=== PATIENT | female | born 1960 | race Caucasian/White ===

== ENCOUNTER 2018-03-17 05:45 | Day surgery (SDC) | payer OTHER ==
[~2018-03-17] VITALS: Ht 154.9 cm; Wt 64.4 kg
[~2018-03-17 05:45] MED LIST: FIBER350 GM PO; HYDROCHLOROTHIA25 MG PO; KLOR-CON 1010 MEQ PO; MULTI VITAMIN1 EACH PO
[2018-03-17] MEDS ORDERED: CINNAMON500 MG PO (06:07)
--- NOTE | 2018-03-18 07:45 | OR ---
[facility] [address], [place] [address] Signed DATE OF OPERATION: 03/17/2018 SURGEON: Sidney Jane MD PREOPERATIVE DIAGNOSIS: Left inguinal hernia. POSTOPERATIVE DIAGNOSIS: Incarcerated left direct inguinal hernia. PROCEDURE: Left Baldo onlay mesh inguinal hernia repair. ESTIMATED BLOOD LOSS: None. INDICATIONS: Elva is a 57-year-old female, who I have known for several years. She went through an episode of diverticulitis and ended up with a hand-assisted laparoscopic low-anterior resection. She had the anastomosis dilated several times. However, she has had some persistent pain in her left lower quadrant, specifically in the inguinal area. When we talked about that in more detail, she had that pain before her diverticular disease. She said it radiates down into the left perineum and it is worse when she exercises. We examined her very carefully and could not appreciate a specific inguinal hernia. We actually sent her for a barium enema and found that her colon anastomosis was fine. Followup colonoscopy was also fine. She was sent for an ultrasound of that left lower quadrant groin and sure enough right where she points at the top of the inguinal canal, she has a small 5 to 7 mm inguinal hernia. It is medial to the external iliac vessels and it contained a small amount of fat. Upon return to the office, we re-examined her and still we could not feel the hernia and yet she is very reliable with being able to point exactly to the area. I reviewed with her the nature of inguinal hernias and gave her a booklet on hernias. We discussed the difference between a primary suture repair and a mesh repair. We also mentioned the idea of femoral hernias, but that was not seen on the ultrasound. She is very clear that the pain is at the top of the inguinal canal. We reviewed the expected intraop and postop course. She understands there is risk of surgery including, but not limited to, bleeding, infection, scarring, change in contour of the skin, damage to the nerves, recurrent hernias, and chronic pain. She had expressed understanding and wished to proceed. PROCEDURE NOTE: Electronically Signed By: SIDNEY JANE MD 03/18/18 0745 PATIENT NAME: ELVA JACKSON OPERATIVE REPORT DATE OF : 64 REPORT #: [id number] PHYSICIAN: SIDNEY JANE MD PCP: FAM KOVACS DO REPORT IS CONFIDENTIAL AND NOT TO BE RELEASED WITHOUT AUTHORIZATION [facility] [address], [place] [address] Signed I met with Elva and her in our preop area. We all agreed it was the left groin and we marked that appropriately. After this, Elva was taken into the operating room and placed in a supine position under general endotracheal tube anesthesia. She was given preoperative antibiotics along with subcutaneous heparin. SCDs were utilized. She was then prepped and draped in the usual sterile fashion. A standard oblique incision was made in the left groin and carried down through the tissues bluntly and with the cautery. The external oblique fascia was opened along its length and developed medially and laterally. We could see a small iliohypogastric nerve. We looked very carefully for an ilioinguinal nerve and never could find it. We were able to easily mobilize and isolate the round ligament, right back to the deep ring and then just medial to that sure enough, she had a small hernia, maybe 5 to 7 mm in diameter, containing fat. We went ahead and divided the lower inguinal ligament at the deep ring with the hemostat and 0 Vicryl tie, and then we divided the round ligament just past the pubic tubercle again with the hemostat and 0 Vicryl tie. After this, we clamped the base of the hernia with hemostat and again tied off with the 0 Vicryl tie. We then used our flat Prolene mesh and we cut that to fit her groin and we held that in place medially and laterally with running #1 Prolene suture. It covered the entire direct and indirect spaces. Again, all the tension was taken with the iliohypogastric nerve. After this, local anesthetic was copiously injected into the wound. The wound was irrigated and suctioned out until clear. We then closed the external oblique over the repair with the help of a running 2-0 PDS suture. The very distal portion of the external oblique fascia was left open as external ring. The Joe's fascia was then reapproximated with a running 3-0 Monocryl suture. The dermis was reapproximated with interrupted 3-0 subcuticular Monocryl sutures. The skin was then reapproximated with a running 6-0 fast absorbing plain gut suture. Dry gauze and tape were then applied. After this, Elva was awakened from her anesthesia, extubated in the OR, and taken to recovery room in stable condition. Sidney Jane MD ALB/MODL /[id number] cc: MD Sidney Kim MD Electronically Signed By: SIDNEY JANE MD 03/18/18 0745 PATIENT NAME: ELVA JACKSON OPERATIVE REPORT DATE OF : 64 REPORT #: [id number] PHYSICIAN: SIDNEY JANE MD PCP: FAM KOVACS DO REPORT IS CONFIDENTIAL AND NOT TO BE RELEASED WITHOUT AUTHORIZATION [facility] [address], [place] [address] Signed Fam Kovacs DO Copies: MATILDE GONZALEZ MD, ANDREW L MD KARGAR, ARIAN DO ~ Electronically Signed By: SIDNEY JANE MD 03/18/18 0745 PATIENT NAME: ELVA JACKSON OPERATIVE REPORT DATE OF : 64 REPORT #: [id number] PHYSICIAN: SIDNEY JANE MD PCP: FAM KOVACS DO REPORT IS CONFIDENTIAL AND NOT TO BE RELEASED WITHOUT AUTHORIZATION
== END 2018-03-17 11:40 | disposition home or self-care (01) ==
LOC: DS 05:45
PROVIDERS: Colon & Rectal Surgery
PROC: 0YU60JZ Supplement Left Inguinal Region with Synthetic Substitute, Open Approach (ICD-10-PCS; principal; 2018-03-17 06:45)
DX: K40.30 Unilateral inguinal hernia, with obstruction, without gangrene, not specified as recurrent (principal); I10 Essential (primary) hypertension; G43.909 Migraine, unspecified, not intractable, without status migrainosus; Z79.899 Other long term (current) drug therapy
CPT/HCPCS: 00830; C1781; J0131; J0330; J0690; J0735; J1100; J1644; J1885; J2250; J2405; J2550; J2704; J3475; J7120